=== PATIENT | female | born 1950 | race Caucasian/White ===

== ENCOUNTER → 2021-12-02 10:13 | Outpatient (CLI) | payer OTHER, SELFPAY ==
[2021-12-02 11:11] LABS: COVID19 -Nasal RAPID Negative (Negative)
== END ==
PROVIDERS: Visit Provider Family Medicine Sleep Medicine
DX: Z20.822 Contact with and (suspected) exposure to COVID-19 (principal)
CPT/HCPCS: 87635

== ENCOUNTER → 2021-12-02 12:26 | Outpatient (CLI) | payer OTHER, SELFPAY ==
--- NOTE | 2021-12-02 | DI.NM.S_ITS ---
PROCEDURE: NM EXERCISE TREADMILL NON NUC COMPARISON: None. INDICATIONS: Chest pain, unspecified FINDINGS: The patient exercised for 3 minutes and 1 second, reaching 87% of maximum predicted heart rate. Hypertension at rest and appropriate BP response to exercise (resting BP 138/100mmHg, max BP 162/102mm Hg). Reduced exercise capacity (4.1 METs, ANJEL +29%). No ST changes and no angina during the study. IMPRESSION: Low risk, normal treadmill ECG only stress test with reduced exercise tolerance (ANJEL +29%). Target heart rate achieved. Hypertension at rest and appropriate BP response to exercise (resting BP 138/100mmHg, max BP 162/102mm Hg). Dictated by: Jasmina Pedro MD on 12/02/2021 at 16:12 Approved by: Jasmina Pedro MD on 12/02/2021 at 16:15
--- NOTE | 2021-12-02 | DI.ECHO.S_ITS ---
[place] +---------+ [facility] +---------+ : : [address] : : : : [id number] : : : : Phone: [phone]+ Echocardiogram Report + + :Name: YUSEF ENGLISH Study Date: 12/02/2021 Height: 60 in : :[facility] ReadingLocation: Weight: 155 lb : : Gender: Female BSA: 1.7 m2 : :: 1950 Age: 71 yrs BP: 171/100 mmHg: :Reason For Study: CHEST PAIN : :Ordering Physician: AISHWARYA : :MACKENZIE Performed By: Lanette Gonzalez : :Referring: MACKENZIE NEFF : + + Interpretation Summary The ejection fraction is estimated to be 60-65%. Diastolic function could not be accurately assessed due to unobtainable data. The right ventricle is normal in size and function. No significant valvular abnormalities. Unable to estimate PASP. Procedure: A two-dimensional transthoracic echocardiogram with color flow and Doppler was performed. The study quality was technically adequate. There is no prior echocardiogram noted for this patient. The patient was in sinus rhythm with heart rates between 89-102 bpm during the exam. Left Ventricle: The left ventricle is normal in size and wall thickness. The ejection fraction is estimated to be 60-65%. Diastolic function could not be accurately assessed due to unobtainable data. Right Ventricle: The right ventricle is normal in size and function. Atria: The left atrial size is normal. Right atrial size is normal. There is no Doppler evidence for an interatrial shunt. Mitral Valve: The mitral valve is normal in structure and function. There is trace mitral regurgitation. Aortic Valve: The aortic valve opens well. There is no aortic valve stenosis. No aortic regurgitation is present. Tricuspid Valve: The tricuspid valve is normal in structure and function. No tricuspid regurgitation. Pulmonic Valve: The pulmonic valve is not well seen, but is grossly normal. There is no pulmonic valvular regurgitation. Great Vessels: The aortic root is normal size. The dimensions of the ascending aorta are normal. The IVC is of normal diameter and collapses greater than 50% with a sniff. This suggests a low right atrial pressure of 3 mm Hg. Pericardium/ Pleura There is no pericardial effusion. There is no pleural effusion. MMode/2D Measurements & Calculations LVIDd: 4.0 cm LVOT diam: 2.0 cm LVIDs: 2.6 cm Ao root diam: 3.2 cm FS: 34.9 % asc Aorta Diam: 3.2 cm IVSd: 0.99 cm Ao Arch Diam (Prox Trans): 2.9 cm LVPWd: 0.82 cm LV dean. diameter/BSA (cm/m^2): 2.4 LV sys. diameter/BSA (cm/m^2): 1.6 LA A2 area: 16.3 cm2 RA long axis: 4.4 cm LA A4 area: 16.9 cm2 RA area: 11.6 cm2 LA length (vol): 4.9 cm RA vol: 25.6 ml LA vol: 47.1 ml RA : 15.3 ml/m2 LA vol index: 28.1 ml/m2 IVC diam: 1.1 cm RVD1 (basal): 3.4 cm RVD2 (mid): 2.3 cm TAPSE: 1.7 cm Doppler Measurements & Calculations Ao V2 max: 105.6 cm/sec LVOT Max Frederick: 91.0 cm/sec Ao V2 mean: 71.1 cm/sec LV V1 max P.3 mmHg Ao max P.5 mmHg LV V1 VTI: 17.6 cm Ao mean P.3 mmHg NAIDA(I,D): 2.6 cm2 Ao V2 VTI: 21.5 cm NAIDA(V,D): 2.7 cm2 sev ratio: 0.82 NAIDA indexed to BSA (cm^2/m^2): 1.6 MV E max frederick: 53.8 cm/sec PA V2 max: 92.2 cm/sec MV A max frederick: 75.0 cm/sec PA V2 mean: 63.4 cm/sec MV E/A: 0.72 PA mean P.8 mmHg Med Peak E' Frederick: 4.0 cm/sec PA pr(Accel): 36.2 mmHg E/E' med: 13.3 Lat Peak E' Frederick: 4.9 cm/sec E/E' lat: 10.9 E/e' average: 12.1 MV dec time: 0.23 sec SV(LVOT): 56.3 ml Reading Physician:02:11 PM
--- NOTE | 2021-12-02 15:44 | PM.TREADMILL ---
Cardiac Stress Test Report Referral & Results Date Patient Seen: 12/02/21 Time Patient Seen: 15:45 Requesting provider: Fede Bob Indication: Chest pain Rest ECG: Sinus rhtyhm Procedure Note: Standard annetta protocol, 3:01 mins; 4.1 METS Reduced exercise capacity, ANJEL +29% Normal hemodynamic response to exercise; hypertensive at baseline; Target heart rate was achieved No chest pain or anginal symptoms No significant ST changes at peak exerxise No ectopy Test stopped due to dyspnea and fatigue Impression: Normal exercise stress test Please note: Actual ECG tracings can be found in the PACS system.
== END ==
PROVIDERS: PCP Family Medicine; Referring Provider Family Medicine; Visit Provider Family Medicine
DX: R07.9 Chest pain, unspecified (principal); Z20.822 Contact with and (suspected) exposure to COVID-19
CPT/HCPCS: 87635; 93017; 93306; C9803